=== PATIENT | male | born 1980 | race Caucasian/White ===

== ENCOUNTER → 2019-01-28 | Outpatient (CLI) | payer OTHER ==
--- NOTE | 2019-01-28 12:59 | REP ---
MRI soft tissue neck: 01/28/2019. Indication: Neck mass. Comparison: None. Technique: Multiplanar short and long TR sequences of the neck soft tissues were obtained without IV Gadolinium. Findings: No significant abnormal solid soft tissue mass, abnormal fluid collection or cervical lymphadenopathy are detected. The airway is patent. The submandibular and parotid glands are unremarkable. Small perineural cysts at C6/C7 and C7/T1 on the left are noted. Impression: No abnormal solid soft tissue mass, abnormal fluid collection or cervical lymphadenopathy detected. Electronically Signed by Mani Juárez DO 01/28/2019 12:51 P
== END ==
LOC: M RAD 10:16
PROVIDERS: ATTEND Otolaryngology
DX: D10.2 Benign neoplasm of floor of mouth (principal)

== ENCOUNTER → 2021-01-26 | Outpatient (CLI) | payer OTHER ==
--- NOTE | 2021-01-26 10:57 | REP ---
INDICATION: PAIN IN LEFT FOOT. COMPARISON: None. TECHNIQUE: Four views FINDINGS: The joint spaces are symmetric and relatively well maintained. There is no evidence of acute fracture or destructive osseous lesion. There are no heel spurs. IMPRESSION: No acute osseous abnormality. <Electronically signed by Boogie Louis > 01/26/21 [id number]
== END ==
LOC: M PLAIMG 10:10
PROVIDERS: ATTEND Nurse Practitioner Family
DX: M79.672 Pain in left foot (principal)

== ENCOUNTER → 2022-08-04 | Outpatient (REF) | payer OTHER ==
[2022-08-04 19:13] LABS: APPEARANCE, URINE CLEAR (CLEAR); BACTERIA, URINE AUTO NEGATIVE (NEGATIVE); BILIRUBIN, URINE AUTO NEGATIVE (NEGATIVE); BLOOD, URINE BLOOD 1+ (NEGATIVE); COLOR, URINE YELLOW (YELLOW); GLUCOSE, URINE (UA) AUTO NEGATIVE (NEGATIVE); KETONE, URINE AUTO TRACE mg/dL (NEGATIVE); LEUKOCYTE ESTERASE, URINE AUTO NEGATIVE (NEGATIVE); MUCUS, URINE SMALL (NEGATIVE); NITRITE, URINE AUTO NEGATIVE (NEGATIVE); PROTEIN, URINE AUTO NEGATIVE (NEGATIVE); RBC, URINE AUTO 1 /HPF (0-3); SQUAMOUS EPITHELIAL CELL UR AU 0 /HPF (0-6); UROBILINOGEN, URINE AUTO 0.2 mg/dL (0.0-2.0); WBC, URINE AUTO 0 /HPF (0-3)
== END ==
LOC: M LAB REF 18:59
PROVIDERS: ATTEND Physician Assistant
DX: N39.0 Urinary tract infection, site not specified (principal)

== ENCOUNTER → 2022-12-24 | Outpatient (CLI) | payer OTHER | LOC: M PLAIMG 14:24 | PROVIDERS: ATTEND Nurse Practitioner | DX: G43.909 Migraine, unspecified, not intractable, without status migrainosus (principal) ==